=== PATIENT | female | born 2000 | race Caucasian/White ===

== ENCOUNTER 2019-09-03 16:24 | Emergency (ER) | payer OTHER ==
[2019-09-03 16:56] LABS: Bacteria/HPF None Seen HPF (None Seen); Bilirubin Negative (Negative); Blood, Urine Trace (Negative); Clarity Clear (Clear); Glucose, Urine (Dipstick) Normal (Negative); Leukocyte Negative Leu/uL (Negative); Nitrite Negative (Negative); Protein, Urine (Dipstick) Negative (Neg-Trace); RBC/HPF 0-3 HPF (0-3); Squamous Epithelial 0-3 HPF (0-3); Urobilinogen Normal mg/dL (Less than 2); WBC/HPF 0-3 HPF (0-3)
[2019-09-03 19:37] LABS: #Eosinphils 0.6 thou/uL (0.0-0.7); #Lymphocytes 1.9 thou/uL (1.20-3.40); #Monocytes 0.6 thou/uL (0.11-0.59); #Neutrophils 4.6 thou/uL (1.40-6.50); %Basophils 0.6 % (0.0-1.0); %Eosinophils 8.3 % (0.0-10.0); %Monocytes 7.5 % (0.0-4.0); %Neutrophils 59.6 % (31.0-61.0); Mean Corpuscular HGB CONC 34.6 g/dL (32.0-36.0); Mean Corpuscular Hemoglobin 30.8 pg (25.0-35.0); Mean Corpuscular Volume 88.8 fL (78.0-98.0); Mean Platelet Volume 7.1 fL (7.4-10.4); Platelet Count 200 thou/uL (130-400); RBC Distribution Width 10.9 % (11.5-14.5); White Blood Cell (WBC) Count 7.8 thou/uL (4.8-10.8)
--- NOTE | 2019-09-03 21:42 | ULT ---
TRANSABDOMINAL AND ENDOVAGINAL ULTRASOUND: History: Vaginal bleeding. Comparison: None. Technique: Transabdominal and endovaginal imaging of the pelvis was performed. FINDINGS: Uterus is identified, measuring 7.8 x 6.4 x 9.6 cm. Within the endometrium, there is a gestational sa c and a single pole. [place] rump length is 4.68 cm corresponding to a gestational age of 11 week s 3 days. There does appear to be a small subchorionic hemorrhage. Yolk sac is noted. heart tones at a rate of 163 beats/minute. Neither ovary is appreciated. No free fluid. IMPRESSION: 1. Single intrauterine gestation with heart tones. Gestation by crown rump length is 11 weeks 2 days. 2. Possible small subchorionic hemorrhages. POS: PPP
[2019-09-04 21:22] LABS: Chlamydia by PCR Not Detected (NotDetected); GC by PCR Not Detected (NotDetected)
== END 2019-09-03 20:09 | disposition home or self-care (01) ==
LOC: ERS 16:24
DX: O20.0 Threatened abortion (principal); Z3A.11 11 weeks gestation of pregnancy
CPT/HCPCS: 36415; 76856; 81003; 81015; 84702; 85025; 86900; 86901; 87480; 87491; 87510; 87591; 87660

== ENCOUNTER 2020-02-24 04:52 | Outpatient (CLI) | payer OTHER ==
[2020-02-24 17:14] LABS: SARS-CoV-2 MS2 Positive; SARS-CoV-2 N Gene Negative; SARS-CoV-2 S Gene Negative; SARS-CoV-2 orf1ab Negative
== END 2020-02-24 04:53 | disposition home or self-care (01) ==
LOC: ERS 04:52
PROVIDERS: ATTEND Obstetrics & Gynecology
DX: Z11.59 Encounter for screening for other viral diseases (principal)
CPT/HCPCS: 87635; U0003

== ENCOUNTER 2020-02-25 19:42 | Inpatient (IN) | payer OTHER ==
[~2020-02-25 19:42] MED LIST: Bupivacaine/Epinephrine 0.25% 30 ML VIAL ONE
[2020-02-25 20:39] VITALS: BMI 32.3
[2020-02-25] MEDS ORDERED: Butorphanol Tartrate 1 MG/ML VIAL SLOW IVP PRN (21:08)
[2020-02-25] MEDS ORDERED: hydrALAZINE 20 MG/ML VIAL SLOW IVP PRN (21:08)
[2020-02-25] MEDS ORDERED: Ondansetron PF 4 MG/2 ML Vial IVP PRN (21:08)
[2020-02-25] MEDS ORDERED: Promethazine HCl 25 MG/ML VIAL IM PRN (21:08)
[2020-02-25] MEDS ORDERED: HYDROcodone/Acetaminophen 5/325 mg Tablet PO PRN ×2 (21:08)
[2020-02-25] MEDS ORDERED: NS / Oxytocin 40 units/1000ml 1,000 ML IV PRN (21:08)
[2020-02-25] MEDS ORDERED: Ibuprofen 800 MG TAB PO PRN (21:08)
[2020-02-25] MEDS ORDERED: Lidocaine 1% (PF) 30 ML VIAL SC PRN (21:08)
[2020-02-25] MEDS ORDERED: NS w/ Oxytocin 10 units 500 ML IV SCH ×2 (21:15)
[2020-02-25] MEDS ORDERED: Misoprostol 100 MCG TAB VAG SCH (21:15)
[2020-02-25] MEDS: Lactated Ringer's 1,000 ML IV SCH (21:23)
[2020-02-25 21:47] LABS: Hemoglobin 11.3 g/dL (12.0-16.0); Mean Corpuscular HGB CONC 34.6 g/dL (32.0-36.0); Mean Corpuscular Hemoglobin 32.5 pg (25.0-35.0); Mean Corpuscular Volume 93.9 fL (78.0-98.0); Mean Platelet Volume 8.7 fL (7.4-10.4); Platelet Count 168 thou/uL (130-400); RBC Distribution Width 12.2 % (11.5-14.5); Red Blood Cell (RBC) Count 3.49 mill/uL (4.00-5.20); White Blood Cell (WBC) Count 10.1 thou/uL (4.8-10.8)
[2020-02-25 22:52] LABS: Syphilis Antibody Nonreactive (Nonreactive); Syphilis Antibody Index 0.04 S/CO (<1.00 Non-Reactive)
[2020-02-25 23:00] LABS: HBSAg Index 0.61 S/CO (0-0.99); Hep B Surf Ag Non-Reactive S/CO (NonReactive)
[2020-02-26] MEDS ORDERED: Fentanyl 4 mcg/Bup 0.1% Cadd 100 ML ONE ×2 (04:56→12:05)
[2020-02-26] MEDS ORDERED: Fentanyl 100 MCG/2 ML VIAL ONE (05:02)
[2020-02-26] MEDS: Lactated Ringer's 1,000 ML IV SCH (05:35)
[2020-02-26] MEDS ORDERED: Promethazine HCl 25 MG/ML VIAL IM PRN (05:45)
[2020-02-26] MEDS ORDERED: Naloxone HCl 0.4 mg/ml Vial IVP PRN ×2 (05:45)
[2020-02-26] MEDS ORDERED: Fentanyl 4 mcg/Bupivacaine 0.1% Cassette 100 ML EPIDURAL SCH (05:45)
[2020-02-26] MEDS ORDERED: Ondansetron PF 4 MG/2 ML Vial IVP PRN ×2 (05:45→14:49)
[2020-02-26] MEDS ORDERED: Communication Order-Pharmacy FS SCH (05:45)
[2020-02-26] MEDS ORDERED: Lactated Ringer's 500 ML IV PRN (05:45)
[2020-02-26] MEDS ORDERED: Acetaminophen 325 MG TAB PO PRN (05:45)
[2020-02-26] MEDS ORDERED: diphenhydrAMINE 50 MG/ML VIAL IVP PRN (05:45)
[2020-02-26] MEDS ORDERED: EPHEDRINE 25 MG/5 ML SYRINGE SLOW IVP PRN (05:45)
--- NOTE | 2020-02-26 12:56 | PDOC.LDHP ---
Labor and Delivery H&P Chief complaint: scheduled induction (for PIH) HPI: Pt presents 02/25/20 for scheduled IOL for GHTN. Current gestational age (weeks): 37 Due date: 03/15/20 Dating criteria: last menstrual period Grav: 1 Para: 0 Current complications: gestational hypertension Abnormal US findings: Yes (single UA) Previous surgical history: none Allergies/Adverse Reactions: Allergies Allergy/AdvReac Type Severity Reaction Status Date / Time No Known Allergies Allergy Verified 02/25/20 20:30 Social history: none - Physical Exam Vital signs reviewed and normal: yes (mild range BP) General: NAD Heart: RRR Lungs: CTAB Abdomen: gravid Extremeties: trace edema FHT: category 1 - Vaginal Exam cm dilated: 4 Effacement: 75% Station: 0 - OB Labs Blood type: O RH: negative Antibody Screen: negative HIV: negative RPR: negative HEPSAg: negative 1 hour GCT: negative GBS: negative Urine drug screen: negative Rubella: non-immune - Assessment L&D Assessment: medically indicated induction (for GHTN) - Plan Plan: admit to L&D, cervical ripening, labor augmentation if indicated, informed consent obtained, anesthesia consult for pain management -: A/P: 19yo G1 @ 37.3 sp cervical ripening for IOL for GHTN. AROM w clear fluid on admit exam, BP WNL/mild range, no severe features noted.
[2020-02-26] MEDS ORDERED: Lanolin Ointment 7 GM TUBE TOP PRN (14:49)
[2020-02-26] MEDS ORDERED: Milk Of Magnesia 30 ML UDCUP PO PRN (14:49)
[2020-02-26] MEDS ORDERED: HYDROcodone/Acetaminophen 5/325 mg Tablet PO PRN ×2 (14:49)
[2020-02-26] MEDS ORDERED: Preparation H Ointment 28 GM TUBE PR PRN (14:49)
[2020-02-26] MEDS ORDERED: Bisacodyl 10 MG SUPP PR PRN (14:49)
[2020-02-26] MEDS ORDERED: NS / Oxytocin 40 units/1000ml 1,000 ML IV SCH (14:49)
[2020-02-26] MEDS ORDERED: hydrALAZINE 20 MG/ML VIAL SLOW IVP PRN (14:49)
[2020-02-26] MEDS ORDERED: diphenhydrAMINE 25 MG CAP PO PRN (14:49)
[2020-02-26] MEDS ORDERED: Benzocaine-Menthol 82.5 ML CAN TOP PRN (14:49)
[2020-02-26] MEDS: Ferrous Sulfate 325 MG TAB PO SCH (17:13)
[2020-02-26] MEDS: Docusate Calcium (SURFAK) 240 MG CAP PO SCH (22:49)
[2020-02-26] MEDS: Ibuprofen 800 MG TAB PO SCH (22:49)
[2020-02-27] MEDS: Lactated Ringer's 1,000 ML IV SCH (01:51)
[2020-02-27] MEDS: Ibuprofen 800 MG TAB PO SCH ×2 (05:44→14:57)
[2020-02-27 06:51] LABS: Hemoglobin 9.7 g/dL (12.0-16.0); Mean Corpuscular Hemoglobin 32.3 pg (25.0-35.0); Mean Platelet Volume 8.6 fL (7.4-10.4); Platelet Count 143 thou/uL (130-400); RBC Distribution Width 12.5 % (11.5-14.5); White Blood Cell (WBC) Count 9.6 thou/uL (4.8-10.8)
[2020-02-27] MEDS: Ferrous Sulfate 325 MG TAB PO SCH (08:48)
[2020-02-27] MEDS: Docusate Calcium (SURFAK) 240 MG CAP PO SCH (08:48)
--- NOTE | 2020-02-27 08:52 | PDOC.PP ---
Post Progress Note Post Day #: 1 Subjective: doing well, breast feeding, minimal lochia and pain, would like to go home today if possible PO intake tolerated: yes Flatus: yes Ambulation: yes Vital Signs (12 hours) Temp Pulse Resp BP Pulse Ox 02/27/20 07:48 98.0 F 95 20 120/65 98 02/27/20 05:41 98.2 F 78 14 117/71 97 Weight Weight 160 lb - Physical Examination General: NAD Respiratory: non-labored breathing Fundus firm & at: below umb Skin: no rash Psychiatric: A&Ox3, normal affect Result Diagrams: 02/27/20 06:15 Additional Labs: Post Labs Blood Type O NEGATIVE 02/25/20 21:31 Hep Bs Antigen Non-Reactive S/CO (NonReactive) 02/25/20 21:30 (1) 37 weeks gestation of Code(s): Z3A.37 - 37 WEEKS GESTATION OF Status: Acute (2) Vaginal delivery Code(s): O80 - ENCOUNTER FOR FULL-TERM UNCOMPLICATED DELIVERY Status: Acute (3) Gestational hypertension Code(s): O13.9 - GESTATIONAL HTN W/O SIGNIFICANT PROTEINURIA, UNSP TRIMESTER Status: Acute - Assessment/Plan A/P: PPD 1 doing well, no si/sx worsening PIH< would like to DC today if baby DC.
[2020-02-27] MEDS ORDERED: Prenatal Vitamin 1 TAB PO SCH (09:00)
[2020-02-27 11:16] VITALS: BP 117/70; TEMP 98.2
[2020-02-27] MEDS ORDERED: Measles/Mumps/Rubella 10 MCG/0.5 ML VIAL SC ONE (14:49)
[2020-02-27] MEDS ORDERED: Adacel (T-DAP) 0.5 ML SYRINGE IM ONE (14:49)
--- NOTE | 2020-02-28 08:45 | PQF ---
ART RHODES AGUSTINA TARA ROBINSON DO [id number] CLINICAL DOCUMENTATION CLARIFICATION FORM: POST DISCHARGE Addendum to original discharge summary date: ____ Late entry note date: __ DATE: 02/28/2020 ATTN: Robinson Camargo Please exercise your independent, professional judgment in responding to the clarification form. Clinical indicators are provided on the bottom of this form for your review Please check appropriate box(s): [ ] Associated Diagnosis: Acute blood loss anemia [ ] Not clinically significant laboratory findings [ ] Other diagnosis [ x ] Unable to determine In addition, please specify: Present on Admission (POA): [ ] Yes [ ] No [ x ] Unable to determine For continuity of documentation, please document condition throughout progress notes and discharge summary. Thank You. CLINICAL INDICATORS - SIGNS / SYMPTOMS/ LABS are present in the medical record: Laboratory: Hgb 02/24: 11.3, 02/26: 9.7 Laboratory: Hct 02/24: 32.8, 02/26: 28.5 Laboratory: RBC 02/24: 3.49 02/26:3.00 Vital signs 02/25: Pulse=77 FX=165/75 RISK FACTORS s/p vaginal delivery PN 02/26 Dr. Camargo Gestational hypertension HP 02/25 Dr. Camargo 37 weeks gestation HP 02/25 Dr. Camargo TREATMENT Ferrous Sulfate 325mg po MAR 02/26 Laboratory Monitoring Collected 02/24 IVF DEC 20 (This form is maintained as a part of the permanent medical record) 2014 [employer]. All Rights Reserved [email or web address]
== END 2020-02-27 18:14 | disposition home or self-care (01) | DRG 807 ==
LOC: L&D 19:42 → 3SW 02-26 16:22
PROVIDERS: ADMIT Obstetrics & Gynecology; ATTEND Obstetrics & Gynecology
PROC: 10907ZC Drainage of Amniotic Fluid, Therapeutic from Products of Conception, Via Natural or Artificial Opening (ICD-10-PCS; principal; 2020-02-25)
PROC: 10E0XZZ Delivery of Products of Conception, External Approach (ICD-10-PCS; 2020-02-25)
PROC: 3E0P7VZ Introduction of Hormone into Female Reproductive, Via Natural or Artificial Opening (ICD-10-PCS; 2020-02-25)
DX: O13.4 Gestational [pregnancy-induced] hypertension without significant proteinuria, complicating childbirth (principal); Z37.0 Single live birth; Z3A.37 37 weeks gestation of pregnancy; Z29.13 Encounter for prophylactic Rho(D) immune globulin
CPT/HCPCS: 36415; 51702; 85027; 85461; 86780; 86850; 86870; 86900; 86901; 87340; 90384; 96372; J2590; J3010

== ENCOUNTER 2023-01-24 06:04 | Emergency (ER) | payer OTHER | END 2023-01-24 06:29 | disposition home or self-care (01) | LOC: ERS 06:04 | DX: H10.9 Unspecified conjunctivitis (principal) | CPT/HCPCS: 99282 ==

== ENCOUNTER 2023-07-24 23:07 | Emergency (ER) | payer OTHER ==
[2023-07-25 00:43] LABS: #Eosinphils 0.7 thou/uL (0.0-0.7); #Monocytes 0.6 thou/uL (0.11-0.59); #Neutrophils 4.4 thou/uL (1.40-6.50); %Basophils 0.1 % (0.0-1.0); %Eosinophils 9.2 % (0.0-10.0); %Lymphocytes 23.7 % (21.0-51.0); %Monocytes 7.8 % (0.0-10.0); %Neutrophils 58.8 % (42.0-75.0); Hematocrit 35.5 % (36.0-47.0); Hemoglobin 12.3 g/dL (12.0-16.0); Mean Corpuscular HGB CONC 34.6 g/dL (32.0-36.0); Mean Corpuscular Hemoglobin 30.5 pg (27.0-31.0); Mean Corpuscular Volume 88.1 fl (78.0-98.0); Mean Platelet Volume 9.9 fL (7.4-10.4); Platelet Count 210 10x3/uL (130-400); RBC Distribution Width 11.8 % (11.5-14.5); Red Blood Cell (RBC) Count 4.03 mill/uL (4.20-5.40); White Blood Cell (WBC) Count 7.5 10x3/uL (4.8-10.8)
[2023-07-25 03:06] LABS: Bacteria/HPF None Seen HPF (None Seen); Bilirubin Negative (Negative); Blood, Urine 1+ (Negative); CAUTI Indications for Culture Pregnancy; Clarity Clear (Clear); Glucose, Urine (Dipstick) Normal (Negative); Ketone, Urine Negative (Negative); Leukocyte Negative Leu/uL (Negative); Nitrite Negative (Negative); Protein, Urine (Dipstick) Negative (Neg-Trace); RBC/HPF 0-3 HPF (0-3); Specific Gravity, Urine 1.006 (1.002-1.036); Squamous Epithelial None Seen HPF (0-3); Urobilinogen Normal mg/dL (Less than 2); WBC/HPF 0-3 HPF (0-3); pH, Urine 6.5 (5.0-9.0)
[2023-07-25 03:07] LABS: ALT (SGPT) 19 U/L (8-55); AST (SGOT) 14 U/L (5-34); Albumin 4.5 g/dL (3.5-5.0); Alkaline Phosphatase 72 U/L (40-110); Anion Gap 14 mmol/L (10-20); BUN (Urea Nitrogen) 7 mg/dL (7.0-18.7); Bilirubin, Total 0.5 mg/dL (0.2-1.2); Calc. Creatinine Clearance 0 mL/min (70-130); Calcium 10.2 mg/dL (7.8-10.44); Carbon Dioxide 22 mmol/L (22-29); Chloride 105 mmol/L (98-107); Estimated GFR 130; Glucose 76 mg/dL (70-105); Potassium 3.6 mmol/L (3.5-5.1); Protein, Total 7.5 g/dL (6.0-8.3); Sodium 137 mmol/L (136-145)
[2023-07-25 03:19] LABS: Urine Culture Reflex Yes Yes
== END 2023-07-25 04:22 | disposition left against medical advice (07) ==
LOC: ERS 23:07
DX: Z53.21 Procedure and treatment not carried out due to patient leaving prior to being seen by health care provider (principal)
CPT/HCPCS: 36415; 76856; 80053; 81001; 84702; 85025; 86900; 86901; 87086; 93976

== ENCOUNTER 2024-01-14 20:40 | Emergency (ER) | payer OTHER | END 2024-01-14 22:08 | disposition home or self-care (01) | LOC: ERS 20:40 | DX: O99.891 Other specified diseases and conditions complicating pregnancy (principal); H66.92 Otitis media, unspecified, left ear; O24.419 Gestational diabetes mellitus in pregnancy, unspecified control; Z3A.34 34 weeks gestation of pregnancy | CPT/HCPCS: 99282 ==